=== PATIENT | female | born 1995 | race Two or more races ===

== ENCOUNTER 2021-09-23 09:55 | Day surgery (SDC) | payer OTHER | END 2021-09-23 19:00 | disposition home or self-care (01) | LOC: CIR.AMB 09:55 | PROVIDERS: ATTEND Obstetrics & Gynecology | DX: O02.1 Missed abortion (principal); Z20.822 Contact with and (suspected) exposure to COVID-19; J45.909 Unspecified asthma, uncomplicated; Z71.6 Tobacco abuse counseling; F17.210 Nicotine dependence, cigarettes, uncomplicated; F12.90 Cannabis use, unspecified, uncomplicated; E16.2 Hypoglycemia, unspecified; F41.0 Panic disorder [episodic paroxysmal anxiety] ==